=== PATIENT | male | born 1930 | race Caucasian/White ===

== ENCOUNTER 2018-11-02 19:22 | Inpatient (IN) ==
[2018-11-02] MEDS ORDERED: ACETAMINOPHEN 325 MG TABLET PO PRN (22:41)
[2018-11-02 22:52] LABS: CKMB % 4.1 %
[2018-11-02 22:54] LABS: Troponin I 5.79 NG/ML (0.00-0.045)
[2018-11-03 05:23] LABS: Basophils % 0.8 % (0.0-0.8); Eosinophils # 0.1 10*3/uL (0.0-0.87); Eosinophils % 2.7 % (0.00-10.9); Hematocrit 28.6 VOL% (42.0-52.0); Immature Granulocytes % 0.4 %; Immature Granulocytes Absolute 0.01 #; Lymphocytes # 0.5 10*3/uL (1.4-4.0); Lymphocytes % 20.2 % (21.2-54.2); Mean Corpuscular Volume 74.9 FL (87-102); Mean Platelet Volume 10.4 FL (9.6-12.0); Neutrophils % 67.9 % (38.7-73.9); Red Blood Count 3.82 MC/CUMM (3.8-5.5); Red Cell Distribution Width 19.1 % (9.3-17.3); White Blood Count 2.6 T/CUMM (4-12)
[2018-11-03 05:29] LABS: Platelet Count 94 T/CUMM (130-400)
[2018-11-03 05:45] LABS: Albumin 2.6 G/DL (3.4-5.0); Bilirubin,Total 2.4 MG/DL (0.2-1.0); Calcium 8.7 MG/DL (8.5-10.1); Ferritin 29.9 ng/ml (26-388); Osmolality,Calculated 293.4 MOS/KG (273-304); Total Protein 5.9 G/DL (6.4-8.3)
[2018-11-03 05:49] LABS: Folate 19.5 NG/ML (5.4-24.0); Vitamin B12 192 PG/ML (211-911)
[2018-11-03 06:06] LABS: Risk Ratio 3.47
[2018-11-03 06:28] LABS: Sedimentation Rate-Westergren 38 MM/HR (0-20)
[2018-11-03 06:37] LABS: Platelet Estimate Decreased
[2018-11-03] MEDS ORDERED: SODIUM CHLORIDE 0.9% 1,000 ML IV PRN (08:09)
[2018-11-03] MEDS ORDERED: ENOXAPARIN 40 MG/0.4 ML SYRINGE SUBCUT SCH (08:30)
[2018-11-03] MEDS: ASPIRIN CHEW 81 MG TABLET PO SCH (08:36)
[2018-11-03] MEDS: RANOLAZINE 500 MG TABLET PO SCH ×2 (08:36→20:54)
[2018-11-03] MEDS: TAMSULOSIN 0.4 MG CAPSULE PO SCH (08:37)
[2018-11-03] MEDS: PANTOPRAZOLE 40 MG TABLET PO SCH ×2 (08:37→20:54)
[2018-11-03] MEDS: CARVEDILOL 6.25 MG TABLET PO SCH ×2 (08:37→16:38)
[2018-11-03] MEDS: SIMVASTATIN 20 MG TABLET PO SCH (08:37)
[2018-11-03 08:49] LABS: Ferritin 30.1 ng/ml (26-388)
[2018-11-03] MEDS ORDERED: ASPIRIN 325 MG TABLET PO SCH (09:00)
[2018-11-03] MEDS ORDERED: ENOXAPARIN 100 MG/ML SYRINGE SUBCUT SCH (09:00)
[2018-11-03] MEDS ORDERED: PANTOPRAZOLE 40 MG TABLET PO SCH (09:00)
[2018-11-03 09:13] LABS: Apearance,Urine CLEAR (Clear); Bilirubin,Urine Negative (Negative); Blood, Urine Large mg/dL (Negative); Glucose,Urine (UA) Negative (Negative); Ketones,Urine Negative (Negative); Mucus,Urine Few /LPF (Occasional); Nitrite,Urine Negative (Negative); Protein,Urine 30 MG/DL; RBC,Urine 377 /HPF (0-4); Squamous Epithelial Cell,Urine Occasional /HPF (0-10); Urine Color Amber (Yellow); Urine Specific Gravity 1.014 (1.001-1.035); WBC,Urine 14 /HPF (0-6)
[2018-11-03] MEDS ORDERED: ALBUTEROL/IPRATROPIUM 3 ML NEB RESP TX PRN (13:59)
[2018-11-03] MEDS ORDERED: FUROSEMIDE 40 MG/4 ML VIAL IV ONE (14:00)
[2018-11-03 19:12] LABS: Hematocrit 33.1 VOL% (42.0-52.0); Hemoglobin 9.6 GM/DL (14.0-18.0)
[2018-11-04 05:13] LABS: Basophils % 1.1 % (0.0-0.8); Eosinophils # 0.2 10*3/uL (0.0-0.87); Hematocrit 32.4 VOL% (42.0-52.0); Hemoglobin 9.5 GM/DL (14.0-18.0); Immature Granulocytes % 0.6 %; Immature Granulocytes Absolute 0.02 #; Lymphocytes # 0.7 10*3/uL (1.4-4.0); Lymphocytes % 19.2 % (21.2-54.2); Mean Corpuscular HGB Conc 29.3 GM/DL (32-36); Mean Corpuscular Volume 76.1 FL (87-102); Monocytes % 11.1 % (1.7-12.7); Platelet Count 100 T/CUMM (130-400); Red Blood Count 4.26 MC/CUMM (3.8-5.5); Red Cell Distribution Width 19.5 % (9.3-17.3); White Blood Count 3.6 T/CUMM (4-12)
[2018-11-04 05:35] LABS: Platelet Estimate Decreased; Polychromasia Few
[2018-11-04 05:45] LABS: Calcium 8.5 MG/DL (8.5-10.1)
[2018-11-04] MEDS ORDERED: LACTATED RINGERS 1,000 ML IV SCH (08:00)
[2018-11-04] MEDS ORDERED: PROPOFOL 200 MG/20 ML VIAL IV ONE (09:00)
[2018-11-04] MEDS ORDERED: ETOMIDATE 20 MG/10 ML VIAL IV ONE (09:00)
[2018-11-04] MEDS ORDERED: LIDOCAINE 2% 5 ML VIAL ONE (09:00)
[2018-11-04] MEDS: TAMSULOSIN 0.4 MG CAPSULE PO SCH (12:17)
[2018-11-04] MEDS: SIMVASTATIN 20 MG TABLET PO SCH (12:17)
[2018-11-04] MEDS: ASPIRIN CHEW 81 MG TABLET PO SCH (12:18)
[2018-11-04] MEDS: PANTOPRAZOLE 40 MG TABLET PO SCH ×2 (12:18→20:56)
[2018-11-04] MEDS: RANOLAZINE 500 MG TABLET PO SCH ×2 (12:18→20:55)
[2018-11-04] MEDS: CARVEDILOL 6.25 MG TABLET PO SCH ×2 (12:18→17:43)
[2018-11-04 13:02] LABS: Hepatitis B Core IgM Quant 0.05 Index; Hepatitis B Surface Ag Quant < 0.10 Index; Hepatitis B Surface Ag Result Negative (Negative); Hepatitis C Virus Ab Quant < 0.02 Index; Hepatitis C Virus Ab Result Negative (Negative)
[2018-11-05 06:53] LABS: Basophils % 0.7 % (0.0-0.8); Eosinophils # 0.2 10*3/uL (0.0-0.87); Eosinophils % 5.3 % (0.00-10.9); Hematocrit 32.3 VOL% (42.0-52.0); Hemoglobin 9.5 GM/DL (14.0-18.0); Immature Granulocytes % 0.5 %; Immature Granulocytes Absolute 0.02 #; Lymphocytes % 22.9 % (21.2-54.2); Mean Corpuscular HGB Conc 29.4 GM/DL (32-36); Mean Platelet Volume 10.1 FL (9.6-12.0); Monocytes % 12.8 % (1.7-12.7); Neutrophils % 57.8 % (38.7-73.9); Platelet Count 132 T/CUMM (130-400); Red Blood Count 4.25 MC/CUMM (3.8-5.5); Red Cell Distribution Width 19.4 % (9.3-17.3); White Blood Count 4.2 T/CUMM (4-12)
[2018-11-05 07:21] LABS: Calcium 8.7 MG/DL (8.5-10.1); Osmolality,Calculated 290.7 MOS/KG (273-304)
[2018-11-05] MEDS: TAMSULOSIN 0.4 MG CAPSULE PO SCH (09:34)
[2018-11-05] MEDS: RANOLAZINE 500 MG TABLET PO SCH (09:35)
[2018-11-05] MEDS: CARVEDILOL 6.25 MG TABLET PO SCH (09:35)
[2018-11-05] MEDS: PANTOPRAZOLE 40 MG TABLET PO SCH (09:35)
[2018-11-05] MEDS: ASPIRIN CHEW 81 MG TABLET PO SCH (09:35)
[2018-11-05] MEDS: SIMVASTATIN 20 MG TABLET PO SCH (09:35)
[2018-11-05 13:24] VITALS: BP 113/60
[2018-11-14] MEDS ORDERED: BISACODYL 5 MG TABLET PO ONE (12:00)
[2018-11-14] MEDS ORDERED: POLYETHYLENE GLYCOL POWDER 255 GM BOTTLE PO ONE (18:00)
== END 2018-11-05 14:19 | disposition home or self-care (01) | DRG 811 ==
LOC: N.TELEN 21:02 → SUATTDRO 21:02
PROVIDERS: ADMIT Internal Medicine; ATTEND Family Medicine